=== PATIENT | female | born 1980 | race Asian ===

== ENCOUNTER 2018-09-07 20:48 | Emergency (ER) | payer SELFPAY ==
[~2018-09-07] VITALS: Ht 139.7 cm; Wt 49.0 kg
[2018-09-07 20:52] VITALS: Ht 139.7 cm; Wt 49.0 kg
[2018-09-07] MEDS ORDERED: SOD CHLORIDE 0.9% 1,000 ML IV STA (22:30)
[2018-09-07] MEDS ORDERED: morphine 4 MG/ML VIAL IV STA (22:30)
[2018-09-07] MEDS ORDERED: ONDANSETRON 4 MG INJ IV STA (22:30)
[2018-09-07] MEDS ORDERED: ALBU18HF INHALATION (22:34)
[2018-09-07] MEDS ORDERED: CALC300T4 PO (22:34)
[2018-09-08] MEDS ORDERED: IBUP-1542 PO (01:17)
--- NOTE | 2018-09-08 01:19 | ERD ---
ER Documentation Chief Complaint Chief Complaint LEFT PELVIC/FLANK PAIN X 1 HR, DENIES DYSURIA HPI This is a very pleasant 30-year-old female sent flank pain and left pelvic pain for 1 hour. She denies dysuria. Said it was sudden onset is gotten better since she got here. No fevers no chills no nausea no vomiting. Pain mild to moderate intensity with no exacerbating or alleviating factors. Denies dysuria. ROS All systems reviewed and are negative except as per history of present illness. Medications Home Meds Active Scripts Ibuprofen* (Motrin*) 600 Mg Tab, 600 MG PO Q6H PRN for PAIN AND OR ELEVATED TEMP, #30 TAB Prov:GABRIEL RICHARDSON. 09/08/18 Reported Medications Calcium Carbonate* (Tums X-Str) 300 Mg Tab.chew, 300 MG PO, TAB.CHEW 09/07/18 Albuterol Sulfate* (Ventolin HFA*) 18 Gm Hfa.aer.ad, 2 PUFF INHALATION Q4H, #1 INHALER 09/07/18 Allergies Allergies: Coded Allergies: No Known Allergy (Unverified , 09/07/18) PMhx/Soc Medical and Surgical Hx: pt denies Medical Hx, pt denies Surgical Hx Hx Alcohol Use: No Hx Substance Use: No Hx Tobacco Use: No Smoking Status: Never smoker Physical Exam Vitals Vital Signs Date Temp Pulse Resp B/P (MAP) Pulse Ox O2 O2 Flow FiO2 Time Delivery Rate 09/08/18 71 20 97/62 (74) 99 Room Air 00:28 09/07/18 99.6 78 16 129/85 100 20:52 (100) Physical Exam Const: No acute distress Head: Atraumatic Eyes: Normal Conjunctiva ENT: Normal External Ears, Nose and Mouth. Neck: Full range of motion. No meningismus. Resp: Clear to auscultation bilaterally Cardio: Regular rate and rhythm, no murmurs Abd: Soft, non tender, non distended. Normal bowel sounds Skin: No petechiae or rashes Back: No midline or flank tenderness Ext: No cyanosis, or edema Neur: Awake and alert Psych: Normal Mood and Affect Result Diagram: 09/07/18221709/07/182217 Results 24 hrs Laboratory Tests Test 09/07/18 22:18 09/07/18 22:23 White Blood Count 13.7 10^3/ul Red Blood Count 3.86 10^6/ul Hemoglobin 12.0 g/dl Hematocrit 35.8 % Mean Corpuscular Volume 92.7 fl Mean Corpuscular Hemoglobin 31.1 pg Mean Corpuscular Hemoglobin Concent 33.5 g/dl Red Cell Distribution Width 12.1 % Platelet Count 231 10^3/UL Mean Platelet Volume 11.3 fl Immature Granulocytes % 0.600 % Neutrophils % 77.3 % Lymphocytes % 16.3 % Monocytes % 5.1 % Eosinophils % 0.6 % Basophils % 0.1 % Nucleated Red Blood Cells % 0.0 /100WBC Immature Granulocytes # 0.080 10^3/ul Neutrophils # 10.6 10^3/ul Lymphocytes # 2.2 10^3/ul Monocytes # 0.7 10^3/ul Eosinophils # 0.1 10^3/ul Basophils # 0.0 10^3/ul Nucleated Red Blood Cells # 0.0 10^3/ul Urine Color YELLOW Urine Clarity SLIGHTLY CLOUDY Urine pH 7.0 Urine Specific [place] 1.015 Urine Ketones NEGATIVE mg/dL Urine Nitrite NEGATIVE mg/dL Urine Bilirubin NEGATIVE mg/dL Urine Urobilinogen NEGATIVE mg/dL Urine Leukocyte Esterase TRACE Raúl/ul Urine Microscopic RBC 2 /HPF Urine Microscopic WBC 4 /HPF Urine Squamous Epithelial Cells FEW /HPF Urine Hemoglobin NEGATIVE mg/dL Urine Glucose NEGATIVE mg/dL Urine Total Protein NEGATIVE mg/dl Sodium Level 142 mmol/L Potassium Level 4.3 mmol/L Chloride Level 102 mmol/L Carbon Dioxide Level 27 mmol/L Anion Gap 13 Blood Urea Nitrogen 12 mg/dl Creatinine 0.51 mg/dl Est Glomerular Filtrat Rate mL/min > 60 mL/min Glucose Level 126 mg/dl Calcium Level 9.4 mg/dl Total Bilirubin 0.1 mg/dl Direct Bilirubin 0.00 mg/dl Indirect Bilirubin 0.1 mg/dl Aspartate Amino Transf (AST/SGOT) 30 IU/L Alanine Aminotransferase (ALT/SGPT) 19 IU/L Alkaline Phosphatase 52 IU/L Total Protein 8.2 g/dl Albumin 4.6 g/dl Globulin 3.60 g/dl Albumin/Globulin Ratio 1.27 Lipase 56 U/L POC Beta HCG, Qualitative NEGATIVE Current Medications Medications Dose Sig/Ruben Start Time Status Last (Trade) Ordered Route PRN Stop Time Admin Dose Reason Admin Sodium 1,000 ml @ Q1H STAT 09/07/18 DC 09/07/18 Chloride 1,000 mls/hr IV 22:30 23:02 09/07/18 23:29 Morphine 4 mg ONCE STAT 09/07/18 DC 09/07/18 Sulfate IV 22:30 23:02 (morphine) 09/07/18 22:33 Ondansetron 4 mg ONCE STAT 09/07/18 DC 09/07/18 HCl (Zofran IV 22:30 23:02 Inj) 09/07/18 22:33 Procedures/MDM Medical decision making: Very pleasant patient will expect ruptured ovarian cyst. At this point pain is resolved. Stable for outpatient management. Discharge home Motrin. Patient's gastrointestinal symptoms have stabilized while in the department. No evidence of severe dehydration, sepsis, or surgical abdomen. Extensive discussion with family and patient that occult disease cannot be ruled out. 8 hour recheck for repeat abdominal exam is planned. Departure Diagnosis: Primary Impression: Flank pain Condition: Stable Patient Instructions: Ovarian Cyst GABRIEL RICHARDSON Sep 08, 2018 01:19
[2018-09-08 01:31] VITALS: BP 99/59; PULSE 75; RESP 16
== END 2018-09-08 01:32 | disposition home or self-care (01) ==
LOC: E/R 20:48
DX: R10.9 Unspecified abdominal pain (principal); R10.2 Pelvic and perineal pain
CPT/HCPCS: 51702; 74176; 80053; 81001; 81025; 83690; 85025; 87086; 96374; 96375; 99285; J2270; J2405; J7030